=== PATIENT | female | born 1985 | race African-American/Black ===

== ENCOUNTER 2021-04-18 13:58 | Inpatient (IN) | payer BC, OTHER ==
[~2021-04-18] VITALS: Ht 172.7 cm; Wt 110.0 kg
[~2021-04-18 13:58] MED LIST: ALLEGRA60 M1 PO; AMOXICILLIN500 MG PO; BACTRIM DS1 TAB PO; CLARITIN10 MG; CLARITIN10 MG PO; CLINDAMYCIN2 % VA; DEPO-PROVER400 MG/ML; DIFLUCAN150 MG PO; FISH OIL1000 MG PO; FLAGYL500 MG PO; FLEXERIL PO; IRON325 M1 PO; LEVAQUIN500 MG PO; LORTAB 5 OR; LORTAB 7.5; NAPROSYN500 MG PO; NO HOME MEDS; NORCO1 TA2 PO; PRENATAL1 TA1 PO; PREVACID30 M1 PO; ROBITUSSIN200 MG/10 PO; TESSALON200 MG PO; TOBRAMYCIN0.3 % OD; ZOFRAN ODT4 MG PO; ZPAK PO
--- NOTE | 2021-04-18 14:25 | NUR ---
PATEINT TO ROOM VIA WHEELCHAIR AND PHYSICIAN NOTIFIED OF PATIENT STATUS
[2021-04-18 15:11] LABS: HEMATOCRIT 39.8 % (37.0-47.0); HEMOGLOBIN 12.5 g/dl (12.0-16.0); IMMATURE GRANULOCYTES 0.2 % (0.0-5.0); MEAN CELL VOLUME 86.5 fL CALC (80.0-100.0); MEAN CORPUSCULAR HGB 27.2 pG CALC (26.0-32.0); MEAN CORPUSCULAR HGB CONC 31.4 g/dL CAL (32.0-36.0); NEUT# 4.91 thou/uL (2.00-7.15); RED BLOOD COUNT 4.6 mill/uL (4.20-5.60); RED CELL DISTRI WIDTH 13.6 % (11.5-15.5)
[2021-04-18 15:21] LABS: HCG SERUM/URINE (NEG/POS) NEGATIVE (NEGATIVE)
[2021-04-18 15:30] LABS: ALBUMIN 4.1 g/dL (3.2-5.0); ALKALINE PHOSPHATASE 86 u/l (38-126); ANION GAP 16 (6-22 (CALC)); BILIRUBIN, TOTAL 0.4 mg/dL (0.0-1.4); BUN 15 mg/dL (7-17); BUN/CREATININE RATIO 21 (12-20 (CALC)); C-REACTIVE PROTEIN 8.9 mg/dL (0-0.9); CARBON DIOXIDE 27 mmol/l (22-30); CHLORIDE 97 mmol/l (95-108); CREATININE 0.7 mg/dL (0.5-1.0); GFR > 60 ML/MIN (>=60 (CALC)); GFR FOR AFR.AMER. > 60 ML/MIN (>=60 (CALC)); POTASSIUM 3.4 mmol/l (3.5-5.1); SGOT/AST 78 u/l (14-36); SODIUM 136 mmol/l (137-146); TOTAL PROTEIN 8.8 g/dL (6.3-8.2)
--- NOTE | 2021-04-18 18:48 | NUR ---
Reassessment of patient completed. No distress noted.
--- NOTE | 2021-04-18 19:00 | NUR ---
REPORT TO SEWER REPAIRER NURSE
--- NOTE | 2021-04-18 19:10 | NUR ---
IN ROOM INTRODUCED SELF TO [facility] PACED FOR TRANSFER TO [facility].
--- NOTE | 2021-04-18 19:29 | NUR ---
REPORT CALLED BY DAY SHIFT NURSE.
--- NOTE | 2021-04-18 19:34 | NUR ---
PT. TO [facility] FLOOR VIA STRETCHER, NO C/O AT THIS TIME.
[2021-04-18 19:35] VITALS: BP 115/68
--- NOTE | 2021-04-18 19:35 | NUR ---
REPORT RECEIVED FROM ER NURSE, ASSUMED CARE. PT ARRIVED TO THE UNIT AT APPROXIMATLY 1935. PT IS INDEPENDENT IN HER ADL'S. SOB WITH COVID + PNEUMONIA. LUNGS IN BASES ARE DIMINSHED ALL OTHER LOBES ARE CTA. INSTRUCTION GIVEN ON USE OF INCENTIVE SPIROHMETER AND THE IMPORTANCE OF LAYING PRONE. PT VERBALIZED UNDERSTANDING TO INSTRUCTION GIVEN. IV TO LAC #20, SL. FLUSHES EASILY. PT ON TELE RUNNING SR. BREATHING IS EVEN AND UNLABORED AT THIS TIME. PT VERBALIZED HER CONCERN THAT SHE MAY END UP ON A VENTILATOR, PT ADVISED THAT SHE HAS MULTIPLE STEPS R/T OXYGENATION BEFORE THE NEED FOR A VENTILATOR. PT SEEEMED TO BE REASSURED FOLLOWING DISCUSSION. PT ADVISED SHE ALSO HAS A 15MONTH OLD BABY AT HOME THAT IS COVID + AND SHE IS VERY WORRIED ABOUT HER. SOME ANXIETY NOTED WITH PT. PT IS INDEPENDENT IN HER ADL'S AND WAS ADVISED TO UTILIZE CALL BARNES WHENEVER SHE NEEDS ASSISTANCE. SAFETY PRECAUTIONS IN PLACE, WILL MONITOR
[2021-04-19] VITALS: BP 108/65
--- NOTE | 2021-04-19 | NUR ---
PT IS LAYING PRONE IN HER BED WITH HER EYES CLOSED. VS WNL. DENIES PAIN. NO COMPLAINTS VOICED. BREATHING IS EVEN AND UNLABORED. NO S/S OF DISTRESS NOTED. O2 REMAINS ON @ 2L VIA NC. PT TOLERATING WELL. PT HAS BEEN GETTING UP AND DOWN TO CHAIR. REMAINS VERY COMPLAINT WITH INSTRUCTION GIVEN. SAFETY PRECAUTIONS REMAIN IN PLA[place]. WILL MONITOR
[2021-04-19 04:00] VITALS: BP 108/63
--- NOTE | 2021-04-19 04:00 | NUR ---
PT RESTING IN HER ROOM WITH HER EYES CLOSED. PT CONTINUES TO LAY PRONE, VSS. BREATHING EVEN AND UNLABORED. DENIES PAIN. NO COMPLAINTS VOICED. PT GETS UP FREQUENTLY TO MOVE AROUND, VERY WORRIED THAT HER ILLNESS WILL ESCALATE. REASSURED PT AND SHE RELAXED. SAFETY PRECAUTIONS REMAIN IN PLACE. WILL MONITOR
[2021-04-19 06:01] LABS: HEMATOCRIT 39.4 % (37.0-47.0); HEMOGLOBIN 12.6 g/dl (12.0-16.0); IMMATURE GRANULOCYTES 0.4 % (0.0-5.0); MEAN CELL VOLUME 85.8 fL CALC (80.0-100.0); MEAN CORPUSCULAR HGB 27.5 pG CALC (26.0-32.0); NEUT# 4.37 thou/uL (2.00-7.15); RED BLOOD COUNT 4.59 mill/uL (4.20-5.60); RED CELL DISTRI WIDTH 13.6 % (11.5-15.5)
[2021-04-19 06:08] LABS: BUN 14 mg/dL (7-17); BUN/CREATININE RATIO 21 (12-20 (CALC)); CARBON DIOXIDE 30 mmol/l (22-30); CHLORIDE 98 mmol/l (95-108); CREATININE 0.7 mg/dL (0.5-1.0); GFR > 60 ML/MIN (>=60 (CALC)); GFR FOR AFR.AMER. > 60 ML/MIN (>=60 (CALC)); SODIUM 138 mmol/l (137-146)
[2021-04-19 06:29] LABS: ANION GAP 14 (6-22 (CALC)); C-REACTIVE PROTEIN 17.1 mg/dL (0-0.9); POTASSIUM 4.2 mmol/l (3.5-5.1)
[2021-04-19 07:30] VITALS: BP 110/63
--- NOTE | 2021-04-19 07:30 | NUR ---
PATIENT SITTING UP IN CHAIR AT THIS TIME. O2 ON AT 3L N/C AND SPO2 IS CURRENTLY 94%. PATIENT TESTER WASTE DISPOSAL LEAKAGE DONE SEE INTERVENTIONS AT THIS TIME. LUNG COOPER ARE CLEAR IN UPPER AND MIDDLE COOPER AND DIMINISHED IN LOWER COOPER. PATIENT USING INCENTIVE SPIROMETER. PATIENT DENIES ANY PAIN OR SHORTNESS OF BREATH. TELE MONITOR IN PLACE AND BEING MONITORED BY ED. CALL LIGHT WITHIN REACH.
--- NOTE | 2021-04-19 09:16 | NUR ---
PT CONSENTED TO RECEIVE PNEUMONIA VAX, HOWEVER SHE IS NOT A CANDIDATE BASED ON AGE AND PMH.
[2021-04-19 10:30] VITALS: BP 106/55
--- NOTE | 2021-04-19 11:00 | NUR ---
VIJAY SITTING AT BEDSIDE AT THIS TIME. PATIENTS REPORTED SPO2 WAS 83% PATIENT O2 MOVED FROM 3L TO 5L AND O2 MOVED TO 88-89%.NASAL CANULA REPLACED AND DR. RAMIRES NOTIFIED AND RESPIRATORY CALLED TO SET UP HI-FLOW OXYGEN AT 6L AND SPO2 CLIMBED TO 92%. PATIENT ADVISED TO SET UP IN CHAIR AT THIS TIME. YISSEL DENIES ANY SHORTNESS OF BREATH. CALL LIGHT IS WITHIN REACH. WILL CONTINUE TO MONITOR.
--- NOTE | 2021-04-19 12:00 | NUR ---
PATIENT SITTING UP IN CHAIR AT THIS TIME. PATIENT O2 IS CURRENTLY ON 8L HI-ADEBAYO AND SPO2 IS 83% O2 MOVED AT THIS TMIE TO 10L HI-ADEBAYO AND SPO2 MOVED TO 85%. PATIENT ASKED IF SHE FELS SHORT OF BREATH PATIENT STATED NO. PATIENT BREATHING IS SHALLOW AT THIS TIME. PATIENT STATED THAT SHE HAS ALLERGIES AND SOMETIMES HER NARES BECOME "STOPPED UP" PATIENT ASKED IF HER NARES ARE BLOCKED NOW PATIENT REPLIED "NO" THIS NURSE WENT TO ADVISE BRUNO CASAREZ OF SITUATION AND FLONASE ORDER PLACED. AT THIS TIME. PATIENT ADVISE TO TRY AND CONSERVE HER OXYGEN AND NOT TALK ON PHONE MUCH. PATIENT UNDERSTANDS. VIJAY ADVISE PULSE OX WILL BE MONITORED AGAIN IN A FEW MINUTES.
--- NOTE | 2021-04-19 12:10 | NUR ---
PATIENT PULSE OX RECHECKED AND PULSE OX AT THIS TIME IS 84-85% ON 10L HI-ADEBAYO. PATIENTS OXYGEN FLOW MOVED TO 12L AND SPO2 IS CURRENTLY 85%. O2 TURNED UP TO 15L HI-FLOW AND BRUNO CASAREZ MADE AWARE OF OXYGEN DEMAND AT THIS TIME. PATIENT SPO2 IS CURRENTLY 88%. WILL CONTINUE TO MONITOR.
--- NOTE | 2021-04-19 12:57 | NUR ---
PATIENT RESTING IN CHAIR DENEIS ANY SHORTNESS OF BREATH. BREATHING IS SHALLOW AND PATIENT IS CURRENTLY ON 15L HI-FLOW AND SPO2 IS 88%. PATIENT CALL LIGHT WITHIN REACH AT THIS TIME. DENIES ANY PAIN.
--- NOTE | 2021-04-19 14:20 | NUR ---
PHYSICAL THERAPY IN TO WORK WITH PATIENT AT THIS TIME.
[2021-04-19 15:00] VITALS: BP 105/63
--- NOTE | 2021-04-19 16:42 | NUR ---
PATIENT GIVEN 650MG OF TYLENOL FOR PAIN IN LEFT KNEE. PATIENT STATES THE PAIN IS A 3 OUT OF THE PAIN SCALE 0-10. PATIENT STATED A COUPLE OF WEEKS AGO SHE WENT TO THE [facility] AND COMPLAINED OF HER LEFT KNEE HURTING AND THE [facility] DID DO AN X-RAY AND FOUND IT TO BE WITHIN NORMAL LIMITS. DANIELLE STATED IS STILL OCCASIONALLY HURTS. PATIENT WILL CONTINUE TO BE MONITORED.
--- NOTE | 2021-04-19 17:31 | NUR ---
PATIENT STATED HER PAIN IN HER LEFT KNEE IS A 1 AT THIS TIME AND THAT THE TYLENOL HELPED
[2021-04-19 19:30] VITALS: BP 115/68
--- NOTE | 2021-04-19 20:00 | NUR ---
PT IN BED WITH HIGH FLOW O2 ON AT 15L. PT BREATHING IS EVEN AND UNLABORED. WHEN ASSESSING PT HER O2 SATURATION DROPPED TO 85%. ADVISED PT TO LAY PRONE AND NOTIFIED RT. ONCE PT WAS LAYING PRONE HER O2 SATURATION CAME UP TO 90%. PER RT DIRECTION CONTINUE TO MONITOR PT FOR ANY DECREASE IN OXYGEN SATURATION. APPLIED CONTINUOUS OXYGENATION MONITOR SO THAT NUMBERS CAN BE SEEN FROM THE DOOR OPPSED TO WAKING PT UP EVERY 15-20 MINUTES. PT IS TOLERATINE. NO C/O PAIN VOICED. NO S/S OF DISTRESS NOTED. WILL MONITOR
--- NOTE | 2021-04-19 21:30 | NUR ---
PT CALLED FOR ASSIATNCE TO USE THE BSC, WHILE HELPING PT TO THE TOILET O2 SATURATIONS STARTED DROPPIMG TO 65%. NOTIFED RT. RT APPLIED A 15L NON-REBREATHER MASK ALONG WITH CURRENT HIGH FLOW CANNULA AT 15L. OXYGENTION SATURATIONS RETURN TO 93%-96% WITH BOTH HIGH FLOW 15L AND NON-REBREATHER 15L. PT TOLERATING WELL. SHE IS CONTINUING TO LAY PRONE. PT HAS EXPRESSED THAT SHE IS VERY SCARED AND SHE IS ANXIOUS WITH THE THOUGHT THAT SHE MAY HAVE TO GO ON A VENTILATOR. REASSURED PT THAT AT THIS TIME SHE IS NOT GOING ONTO A VENTILATOR. SPOKE WITH PT COUSIN WHO PROVIDED CODE FOR INFORMATION. COUSIN INDICATED THAT PT HAD REQUESTED TO BE MOVED TO [facility] TOMORROW. I ADVISED THAT THE PT WOUND NEED TO DISCUSS WITH DOCTOR IN AM. ADVISED THAT THE WAY A TRANSFER IS DONE IS EITHER BY THE DOCTOR TRANSFERRRING AND THE RECIVING [facility]OSP[facility] ACCEPTING HER A PATIENT OR BY SIGNING OUT HERE AND GOING THROUGH [facility] ER. FAMILY AND PT INDICATED UNDERSTANDING TO INSTRUCTION GIVEN. WILL CONTINUE TO MONITOR
[2021-04-20] VITALS (10 sets, daily range): BP systolic 98–123; BP diastolic 58–79
--- NOTE | 2021-04-20 | NUR ---
PT RESTING PRONE AT THIS TIME. O2 SATURATIONS CONTINUE 93%-96% WITH HIGHFLOW AND NON-REBREATHER. PT TOLERATING WELL. NO COMPLAINTS VOICED AT THIS TIME. BREATHING EVEN AND UNLABORED. SAFETY PRECAUTIONS REMAIN IN PLACE. WILL MONITOR
--- NOTE | 2021-04-20 04:22 | NUR ---
PT SITTING ON SIDE OF BED, OXYGEN SATURATIONS REMAIN 94-97% WITH BOTH THE 15L OF HIGH FLOW AND 15L NON-REBREATHER. PT IS ABLE TO GO TO BSC WITH MINIMAL ASSISTANCE. PT BIGGEST PROBLEM WHEN VOIDING IS THE TUBING THAT SHE GETS TURNE AROUND. AHE IS ABLE TO BEAR WEIGHT ON HER LOWER EXTREMITIES AND TRANSFER HERSELF. PT DOES EXPRESS A LOT OF CONCERN R/T TO HER CURRENT MEDICAL CONDITION. REQUIRES QUITE A BIT OF REASSURANCE. ALL FRQUENTLY USED ITEMS ARE WITHIN REACH, BED IN LOWEST POSITION, AND CALL LIGHT WITHIN REACH. WILL MONITOR
[2021-04-20 05:36] LABS: HEMATOCRIT 36.9 % (37.0-47.0); HEMOGLOBIN 11.6 g/dl (12.0-16.0); MEAN CELL VOLUME 85.6 fL CALC (80.0-100.0); MEAN CORPUSCULAR HGB 26.9 pG CALC (26.0-32.0); MEAN CORPUSCULAR HGB CONC 31.4 g/dL CAL (32.0-36.0); NEUT# 6.79 thou/uL (2.00-7.15); RED BLOOD COUNT 4.31 mill/uL (4.20-5.60); RED CELL DISTRI WIDTH 13.6 % (11.5-15.5)
[2021-04-20 05:47] LABS: URINE BILIRUBIN - DIPSTICK NEGATIVE (NEGATIVE); URINE BLOOD DIPSTICK TRACE-INTACT (NEGATIVE); URINE COLOR YELLOW; URINE GLUCOSE - DIPSTICK NEGATIVE (NEGATIVE); URINE KETONE NEGATIVE (NEGATIVE); URINE LEUK ESTERASE NEGATIVE (NEGATIVE); URINE PH 6.5 (4.5-8.0); URINE PROTEIN - DIPSTICK 30 mg/dL (NEG-TRACE); URINE UROBILINOGEN - DIPSTICK 0.2 E.U./dL (0.2)
[2021-04-20 05:55] LABS: URINE NITRITE - DIPSTICK NEGATIVE (Negative)
[2021-04-20 06:00] LABS: ALKALINE PHOSPHATASE 64 u/l (38-126); ANION GAP 14 (6-22 (CALC)); BUN 15 mg/dL (7-17); BUN/CREATININE RATIO 24 (12-20 (CALC)); C-REACTIVE PROTEIN 7.4 mg/dL (0-0.9); CARBON DIOXIDE 30 mmol/l (22-30); CHLORIDE 99 mmol/l (95-108); CREATININE 0.6 mg/dL (0.5-1.0); GFR > 60 ML/MIN (>=60 (CALC)); GFR FOR AFR.AMER. > 60 ML/MIN (>=60 (CALC)); POTASSIUM 4.5 mmol/l (3.5-5.1); SGOT/AST 54 u/l (14-36); SODIUM 138 mmol/l (137-146)
[2021-04-20 06:03] LABS: ALBUMIN 3.2 g/dL (3.2-5.0); BILIRUBIN, TOTAL 0.2 mg/dL (0.0-1.4)
[2021-04-20 06:04] LABS: URINE MUCUS FEW hpf (NONE-FEW); URINE RBC 0-2 RBC/hpf (0-5); URINE SQUAMOUS EPITHELIAL CELL FEW EPI/hpf (0-FEW)
--- NOTE | 2021-04-20 06:47 | NUR ---
PT IS ON 15L HFNC + NRB. SATS 91%-93% AT REST.
--- NOTE | 2021-04-20 07:00 | NUR ---
PATIENT SITTING UP ON SIDE OF BED AT THIS TIME. PATIENT IS ALERT AND ORIENTED X3. PARK SUPERINTENDENT DONE SEE INTERVENTIONS. LUNG COOPER ARE DIMINISHED IN ALL COOPER AND BREATH SOUNDS ARE DIMINISHED. PATIENT DENEIS PAIN AT THIS TIME. PATIENT DOES PRESENT WITH A PRODUCTIVE COUGH AND SPUTMUM IS WHITE AND THIN TO THICK AT TIMES. PATIENT CURRENTLY ON 15L OF NON-REBREATHER AND 15L OF HIGH FLOW OXYGEN AND SPO2 CURRENTLY IS 97%. DR. FRANKEL CALLED AT THIS TIME DUE TO THE OVERNIGHT INCREASE NEED FOR OXYGEN AND HAS GIVEN ORDERS TO PLACE PATIENT ON VAPO-THERM AT THIS TIME. WEB DESIGN SPECIALIST CALLED AND NOTIFIED OF PLACEMENT NEED. PATIENT IS ON TELE AND BEING MONITORED BY ED.
--- NOTE | 2021-04-20 09:02 | NUR ---
PT ARRIVES TO ROOM #9 FROM [facility] D/T [facility] NEED. PT PLACED ON VAPOTHERM BY RT @ 30L. PT TOLERATING WELL. O2 SAT 96-98%. PLACED ON LENS GENERATOR. PLAN OF CARE DISCUSSED WITH PT. VERBALIZED UNDERSTANDING. DENIES ANY NEEDS.
--- NOTE | 2021-04-20 10:59 | NUR ---
DR FRANKEL AND DARLENE WAGE AND SALARY SPECIALIST BEDSIDE FOR EVAL.PER DR FRANKEL ADVISED TO HAVE OXYGEN THERAPY WEANED
--- NOTE | 2021-04-20 15:00 | NUR ---
RT BEDSIDE TO DECREASE OXYGEN, PT UNABLE TO TOLERATED DECREASE. PT PLACED BACK ON 30L AND 75%O2
--- NOTE | 2021-04-20 18:00 | NUR ---
MEAL TRAY PROVIDED TO PT. VAPOTHERM CONTINUES IN PLACE. O2 SAT 94-96%. PT WITH INT PROD COUGH. TELEPHONIC CASE MANAGER IN PLACE.
--- NOTE | 2021-04-20 19:30 | NUR ---
BREATHING EASILY. NAD.
--- NOTE | 2021-04-20 20:52 | NUR ---
RESTING QUIETLY. MILD ANXIETY. BREATHING APPEARS UNLABORED.
--- NOTE | 2021-04-20 22:00 | NUR ---
RESTING QUIETLY. VSS. APPEARS COMFORTABLE.
--- NOTE | 2021-04-20 23:10 | NUR ---
TRANSFER TO ICU WITH SPACE CONTROLLER
--- NOTE | 2021-04-20 23:13 | NUR ---
RECEIVED PT FROM ER. ACCOMPANIE BY RT AND NURSE
[2021-04-21] VITALS (18 sets, daily range): BP systolic 111–127; BP diastolic 64–78
--- NOTE | 2021-04-21 | NUR ---
PT PREFERS TO WEAR IGHT GOWN FROM HOME. ALBUTEROL HFA AND INCENTIVE SPIROMETER USE TAUGHT. INSPIRED VOLUME 500. PT ASSISTED TO PRONE POSITION. EMOTIONAL SUPPORT PROVIDED. TOLERATING PRONE POSITION WELL. NO DISTRESS. WILL CONTINUE TO MONITOR CLOSELY
--- NOTE | 2021-04-21 03:59 | NUR ---
PT RESTING COMFORTABLY IN PRONE POAITION. HEATED HIGH FLOW NASAL CANNULA IN USE. O2 SAT 93 -98%. WILL CONTINUE TO MONITOR.
--- NOTE | 2021-04-21 05:35 | NUR ---
PT WITH COUGHING EPISODE. PRODUCTIVE THICK PINCK TINGED MUCOUS. O2 SAT DECREASED TO 72 DURING EPISODE. PT RESMED PRONE POSITION. PT HAD REPOSITIONED BRIEFLY FOR CXR. O2 SAT INCREASED TO 92%. WILL CONTINUE TO MONITOR.
[2021-04-21 06:11] LABS: HEMATOCRIT 35.4 % (37.0-47.0); HEMOGLOBIN 11.2 g/dl (12.0-16.0); IMMATURE GRANULOCYTES 1.4 % (0.0-5.0); MEAN CELL VOLUME 86.8 fL CALC (80.0-100.0); MEAN CORPUSCULAR HGB 27.5 pG CALC (26.0-32.0); MEAN CORPUSCULAR HGB CONC 31.6 g/dL CAL (32.0-36.0); NEUT# 4.52 thou/uL (2.00-7.15); RED BLOOD COUNT 4.08 mill/uL (4.20-5.60); RED CELL DISTRI WIDTH 13.6 % (11.5-15.5)
[2021-04-21 06:31] LABS: ANION GAP 11 (6-22 (CALC)); BUN 12 mg/dL (7-17); BUN/CREATININE RATIO 19 (12-20 (CALC)); C-REACTIVE PROTEIN 4.7 mg/dL (0-0.9); CARBON DIOXIDE 31 mmol/l (22-30); CHLORIDE 101 mmol/l (95-108); CREATININE 0.6 mg/dL (0.5-1.0); GFR > 60 ML/MIN (>=60 (CALC)); GFR FOR AFR.AMER. > 60 ML/MIN (>=60 (CALC)); SODIUM 139 mmol/l (137-146)
--- NOTE | 2021-04-21 07:07 | NUR ---
REPORT GIVEN TO GORDO JOYCE
--- NOTE | 2021-04-21 07:57 | NUR ---
PATIENT LAYING IN PRONE AT THIS TIME. PATIENT ON VAPO-THERM SETTINGS CURRENTLY IS 30L/75% AND SPO2 90%. PATIENT LUNG COOPER ARE DIMINISHED IN ALL COOPER AND BREATH SOUNDS ARE DIMINISHED AND SHALLOW. PATIENT DENIES ANY SHORTNESS OF BREATH AT THIS TIME AND OR PAIN. VIDEO COORDINATOR READING 71 SR AT THIS TIME. SIDERAILS ARE UP CALL LIGHT WITHIN REACH. ARCADE ATTENDANT DONE SEE INTERVENTIONS.
--- NOTE | 2021-04-21 10:00 | NUR ---
PATIENT LAYING IN PRONE POSITION AT THIS TIME. VAPO-THERM ON AND SPO2 IS 91%. PATIENT DENIES ANY PAIN OR SHORTNESS OF BREATH AT THIS TIME. CALL LIGHT WIHTIN REACH. SIDERAILS ARE UP X2
--- NOTE | 2021-04-21 11:55 | NUR ---
PATIENT SITTING UP IN BED EATING LUNCH DENEIS ANY NEEDS. VAPO-THERM REMAINS AT 30L/75%. PATIENT DEINES ANY SHORTNESS OF BREATH AND OR PAIN AT THIS TIME. SIDERAILS ARE UP X 2 CALL LIGHT IS WITHIN REACH.
--- NOTE | 2021-04-21 16:10 | NUR ---
PATIENT REMAINS UP IN CHAIR AT THIS TIME. PATIENT REQUESTING A GINERGALE AT THIS TIME PATIENT STATED WHEN SHE GET ALL THE ANTIBIOTIC IN THE AFTERNOON HER STOMACH GETS "A LITTLE UPSET AND GINERALE HELPS". PATIENT REMAINS ON VAPO-THERM AT THIS TIME AND SETTINGS ARE UNCHAGED FROM PREVIOUS DOCUMENTTATION. GANG LEADER READING SB AT 58 AT THIS TIME. PATIENT BREATH SOUNDS ARE CLEAR AND RESPIRATIONS ARE UNLABORED AT THIS TIME. CALL LIGHT IS WIHTIN REACH.
--- NOTE | 2021-04-21 18:15 | NUR ---
PATIENT REMAINS UP IN CHAIR AT THIS TIME DENEIS ANY NEEDS AND OR PAIN AT THIS TIME. PATIENT REMAIN ON VAPO-THERM AT 30L/75% AT THIS TIME SPO2 CURRENTLY IS 96% AND BP IS 112/66. CALL LIGHT IS WITHIN REACH AT THIS TIME.
--- NOTE | 2021-04-21 19:45 | NUR ---
RT AT BEDSIDE ASSESSING PATIENT PATIENT REMAINS ON VAPOTHERM PLACED ON 30LPM FIO2 60%.
--- NOTE | 2021-04-21 20:00 | NUR ---
PATIENT ALERT ORIENTEDX 3, CURRENTLY SITTING IN CHAIR, HOOKED TO VAPOTHERM 30LPM/ 60% FI02, SPO2 96%, PATIENT C/O GERD STATED FROM EATING DINNER PULLED PORK, REST ROOM MAID AWARE AWAITING ORDERS, PATIENT HAS SALINE LOCK ON LAC G 20, PATENT FLUSHES WELL, LUNG SOUNDS DIMINISHED BOTH LUNG COOPER, PATIENT HAVING DRY COUGH OCCASIONAL MUCUS SMALL YELLOWISH, ACTIVEBOWEL SOUNDS, CALL LIGHT AT REACH.
--- NOTE | 2021-04-21 20:01 | NUR ---
WEB SYSTEMS DEVELOPER MADE AWARE PATIENT C/O INDIGESTION GERD PATIENT STATED FROM "PULLED PORK DINNER" AWAITING ORDER.
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
--- NOTE | 2021-04-21 23:00 | NUR ---
PATIENT ASSISTED TO BEDSIDE COMMODE, VOIDED AND PASS GAS, PATIENT HAD EPISODE OF COUGHING SPELL, SPO2 RANGING TO LOW 80'S, PATIENT COACHED TO DEEP BREATH, PUT NEW PULSE OXIMETER AND PATIENT ASSITED TO PRONE.WILL CONTINUE TO MONITOR.
--- NOTE | 2021-04-21 23:27 | NUR ---
SPO2 AT THIS TIME 94% ON VAPO 30LPM FIO2 60%.
[2021-04-22] VITALS (18 sets, daily range): BP systolic 91–146; BP diastolic 53–95
--- NOTE | 2021-04-22 | NUR ---
PATIENT REMAINS ON PRONE POSITION, NOT IN DISTRESS AT THIS TIME, CALL LIGHT AT REACH.
--- NOTE | 2021-04-22 01:20 | NUR ---
REIMBURSEMENT SPEC ASSISTED PATIENT TO BEDSIDE COMMODE TO VOID, PATIENT STARTED COUGHING SPO2 WENT DOWN TO 50'S C/O SHORTNESS OF BREATH, VAPOTHERM TURNED UP TO 40LPM 100% FIO2 R/T RESPIRATORY DISTRESS.
--- NOTE | 2021-04-22 02:05 | NUR ---
INDWELLING ROMERO CATHETER INSERTED FR16 R/T RESPIRATORY DISTRESS FROM GOING TO COMMODE, PATIENT TOLERATED PROCEDURE, RESPIRATION STABLE AT THIS TIME, VAPO TURNED BACK DOWN TO 30LPM FI02 60% SPO2 AT 94%.NICKING MACHINE OPERATOR HERMELINDO DAWN MADE AWARE.
--- NOTE | 2021-04-22 02:38 | NUR ---
PATIENT ALREADY ON PRONE POSITION, CURRENT VAPO SETTINGS 30LPM FIO2 60% SPO2 RANGE 87-88% RESPIRATORY MADE AWRE.
--- NOTE | 2021-04-22 03:03 | NUR ---
SPO2 BACK AT 93% ON VAPO 30LPM/ FIO2 60%.
--- NOTE | 2021-04-22 04:00 | NUR ---
PATIENT RESTING IN BED PRONE POSITION, SPO2 @ 96% CURRENTLY SLEEPING IN BED, CALL LIGHT AT REACH.
[2021-04-22 05:39] LABS: HEMOGLOBIN 11.8 g/dl (12.0-16.0); IMMATURE GRANULOCYTES 1.6 % (0.0-5.0); MEAN CORPUSCULAR HGB 27.4 pG CALC (26.0-32.0); MEAN CORPUSCULAR HGB CONC 31.9 g/dL CAL (32.0-36.0); NEUT# 4.64 thou/uL (2.00-7.15); RED BLOOD COUNT 4.3 mill/uL (4.20-5.60); RED CELL DISTRI WIDTH 13.4 % (11.5-15.5)
[2021-04-22 05:53] LABS: ANION GAP 11 (6-22 (CALC)); BUN 11 mg/dL (7-17); BUN/CREATININE RATIO 17 (12-20 (CALC)); CARBON DIOXIDE 29 mmol/l (22-30); CHLORIDE 104 mmol/l (95-108); CREATININE 0.7 mg/dL (0.5-1.0); GFR > 60 ML/MIN (>=60 (CALC)); GFR FOR AFR.AMER. > 60 ML/MIN (>=60 (CALC)); POTASSIUM 4.6 mmol/l (3.5-5.1); SODIUM 139 mmol/l (137-146)
--- NOTE | 2021-04-22 06:45 | NUR ---
REPORT RECEIVED FROM NIGHT RN. CARE ASSUMED.
--- NOTE | 2021-04-22 07:15 | NUR ---
PATIENT RESTING IN BED IN PRONE POSITION WITH EYES CLOSED. PATIENT AROUSES TO VERBAL STIMULI. SHIFT ASSESSMENT COMPLETED AT THIS TIME. IV PATENT X1. PATIENT STATES THAT SHE IS SCARED AND NERVOUS. DISCUSSED THAT WE TALK WITH THE DOCTOR ABOUT THIS ON ROUNDS. PATIENT SAT UP IN BED. PATIENT DESATS TO 88% BUT DOES RECOVER. REASSURANCE PROVIDED. CALL LIGHT IN REACH. WILL CONTINUE TO MONTIOR.
--- NOTE | 2021-04-22 07:59 | NUR ---
PATIENT WITH COMPLAINTS OF NAUSEA AT THIS TIME. PATIENT MEDICATED WITH PEPCID, PROTONIX, AND XANAX PER MAR
--- NOTE | 2021-04-22 09:00 | NUR ---
DR QUIROZ AT BEDSIDE AT THIS TIME. PLAN OF CARE DISCUSSED.
--- NOTE | 2021-04-22 10:04 | NUR ---
PIPE BENDER ASSISTED PATIENT WITH AM CARE AND ASSISTED PATIENT UP TO RECLINER AT BEDSIDE. PATIENT TOLERATED WELL.
--- NOTE | 2021-04-22 11:30 | NUR ---
PATIENT SET UP FOR NOON MEAL AT THIS TIME.
--- NOTE | 2021-04-22 12:00 | NUR ---
PATIENT RESTING IN BED IN PRONE POSTITION AT THIS TIME. RESP ARE EVEN AND UNLABORED. NO DISTRESS NOTED. CALL LIGHT IN REACH. WILL CONTINUE TO MONITOR.
--- NOTE | 2021-04-22 14:00 | NUR ---
PATIENT RESTING IN BED PRONED AT THIS TIME. RESP ARE EVEN AND UNLABORED. NO DISTRESS NOTED.
--- NOTE | 2021-04-22 15:52 | NUR ---
PATIENT RESTING IN BED AT THIS TIME WATCHNG TV. RESP ARE EVEN AND UNLABORED. NO DISTRESS NOTED. CALL LIGHT IN REACH. WILL CONTINUE TO MONITOR.
--- NOTE | 2021-04-22 17:59 | NUR ---
PATIENT SITTING UP IN RECLINER AT BEDSIDE EATING EVENING MEAL. RESP ARE EVEN AND UNLABORED. NO DISTRESS NOTED. CALL LIGHT IN REACH. WILL CONTINUE TO MONITOR.
--- NOTE | 2021-04-22 19:00 | NUR ---
RECEIVED REPORT FROM MALINA CARO.
--- NOTE | 2021-04-22 20:00 | NUR ---
PATIENT AWAKE ALERT SITTING UP IN CHAIR. O2 30L AT 60% VIA HIGHFLOW N/C. RESPIRATIONS EVEN AN UNLABORED. HR REGULAR. VAD S/L. ROMERO CATHETER DRAINING URINE TO GRAVITY. DENIES PAIN. NO ACUTE DISTRESS OBSERVED. ASSESSMENT COMPLETED AND CHARTED. FALL PRECAUTIONS IN PLACE.
--- NOTE | 2021-04-22 21:30 | NUR ---
HS MEDS GIVEN. XANAX PRN GIVEN PER REQUEST. BED IN BED SEMI-FOWLERS AT THIS TIME. NO ACUTE DISTRESS.
--- NOTE | 2021-04-22 23:34 | NUR ---
VENTOLIN ADMINISTERED. PATIENT AWAKE CALM NO DISTRESS.
--- NOTE | 2021-04-22 23:40 | NUR ---
ROMERO CATHETER REPOSITIONED FOR COMFORT. PATIENT LYING SUPINE AT THIS TIME. NO ACUTE DISTRESS.
[2021-04-23] VITALS (21 sets, daily range): BP systolic 116–139; BP diastolic 59–87
--- NOTE | 2021-04-23 00:35 | NUR ---
PATIENT RESTNG SUPINE. NO ACUTE DISTRESS NOTED.
--- NOTE | 2021-04-23 02:09 | NUR ---
PATIENT STILL RESTING PRONE POSITION. NO ACUTE DISTRESS. OXYGEN SATURATIN REMAINS IN THE 90S.
--- NOTE | 2021-04-23 04:42 | NUR ---
PATIENT 02 SATS INTO 60%, COUGHING SPELL AFTER DRINKING WATER. CALL TO RT, PATIENT NOW ON 40L OF 100% VAPOTHERM PATIENT SLOWLY RECOVERS, O2 SAT NOW AT 93%
--- NOTE | 2021-04-23 06:18 | NUR ---
PATIENT REQUESTING FOR OXYGEN TO BE TITRATED DOWN. RT CONSULTED AND STATES SHE CANNOT GO DOWN AT THIS TIME RELATED TO PREVIOUS DESATING DURING COUGHING SPELL.
[2021-04-23 06:21] LABS: HEMATOCRIT 38.3 % (37.0-47.0); HEMOGLOBIN 12.2 g/dl (12.0-16.0); MEAN CELL VOLUME 85.5 fL CALC (80.0-100.0); MEAN CORPUSCULAR HGB 27.2 pG CALC (26.0-32.0); MEAN CORPUSCULAR HGB CONC 31.9 g/dL CAL (32.0-36.0); RED BLOOD COUNT 4.48 mill/uL (4.20-5.60); RED CELL DISTRI WIDTH 13.3 % (11.5-15.5)
[2021-04-23 06:31] LABS: ANION GAP 12 (6-22 (CALC)); BUN 11 mg/dL (7-17); BUN/CREATININE RATIO 16 (12-20 (CALC)); CALCULATED LDLCHOLESTEROL 52 mg/dL (62-129 (CALC)); CARBON DIOXIDE 27 mmol/l (22-30); CHLORIDE 103 mmol/l (95-108); CHOLESTEROL HDL RATIO 4.7 (<4.4 (CALC)); CREATININE 0.7 mg/dL (0.5-1.0); GFR > 60 ML/MIN (>=60 (CALC)); GFR FOR AFR.AMER. > 60 ML/MIN (>=60 (CALC)); HDL CHOLESTEROL 23 mg/dL (>=40); MAGNESIUM 1.8 mg/dL (1.6-2.3); POTASSIUM 4.3 mmol/l (3.5-5.1); SODIUM 137 mmol/l (137-146); TOTAL CHOLESTEROL 109 mg/dl (0-199); TOTAL TRIGLYCERIDES 169 mg/dl (30-149); VLDL CHOLESTROL 34 mg/dl (1-41 (CALC))
--- NOTE | 2021-04-23 07:45 | NUR ---
PATIENT IN BED AT THIS TIME. DEEP WELL CONTRACTOR DONE SEE INTERVENTIONS. PATIENT ON VAPO THERM AT THIS TIME SETTINGS ARE 40L/100% HUMIDITY. PATIENT LUNG COOPER ARE DIMINISHED THROUGOUT BREATH SOUND ARE SHAWLLOW AND DIMINISHED. PATIENT HAS A ROMERO CATH AND IS DRAING CLEAR YELLOW URINE AT THIS TIME. PATIENT IS ALERT AND ORIENTED X 3. LOLLYPOP MACHINE OPERATOR READING SINUS RYTHMA AT 89% SIDERAILS ARE UP X 2 CALL LIGHT IS WITHIN REACH.
--- NOTE | 2021-04-23 08:45 | NUR ---
PER DR. WELSH'S ORDERS PATIENTS ROMERO REMOVED AT THIS TIME. 600 ML NOTED IN ROMERO BAG. PATIENT TOLERATED REMOVAL WITHOUT INCIDENT AND PERICARE GIVEN AT THIS TIME. PATIENT WILL CONTINUE TO BE MONITORED.
[2021-04-23 09:01] LABS: SGOT/AST 27 u/l (14-36)
--- NOTE | 2021-04-23 10:00 | NUR ---
PATIENT UP TO CHAIR AT THIS TIME PATIENT DENIES ANY PAIN CURRENTLY. CALL LIGHT IS WITHIN REACH CRYSTALLIZER OPERATOR READING: SR/84 AND SPO2 ON VAPO-THERM IS 96%. CALL LIGHT IS WITHIN REACH. PATINET ENCOURAGED TO INCREASE FLUIDS AND TO NOTIFY NURSE WHEN SHE NEEDS TO URINATE.
--- NOTE | 2021-04-23 11:45 | NUR ---
PATIENT ASSISTED BY HIRAL SANTANA) TO BEDSIDE COMMODE AT THIS TIME. THIS IS THE FIRST VOID AFTER ROMERO CATH WAS REMOVED. PATIENT VOIDED 400ML OF CLEAR YELLOW URINE AT THIS TIME.
--- NOTE | 2021-04-23 12:45 | NUR ---
PATIENT IV SITE CHANGED AT THIS TIME. PATIENT NEW START IV SITE IS A #20 IN THE RAC. IV SITE REMOVED FROM LAC AT THIS TIME. PATIENT TOLERATED PROCEDURE WELL.
--- NOTE | 2021-04-23 13:05 | NUR ---
PATIENT PLACED BACK IN BED AT THIS TIME. PATIENT LAYING ON RIGHT SIDE AT THIS TIME. PATIENT STATES "MY BELLY IS ACHING A LITTLE" ASKED IF SHE NEEDED ANYTHING FOR PAIN PATIENT DENIES". PATIENT SIDERAILS ARE UP X 2 AND PATIENT REMAINS ON VAPO-THERM AT THIS TIME.
--- NOTE | 2021-04-23 14:00 | NUR ---
PATIENT IN BED AT THIS TIME VAPO-THERM ON AT 40L/100% SPO2 CURRENTLY IS 97%. SIDERAILS ARE UP CALL LIGHT WITHIN REACH.
--- NOTE | 2021-04-23 16:00 | NUR ---
PATIENT LAYING IN BED AT THIS TIME. PATIENT TECHNICAL SYSTEM ANALYST READING SR/HR OF 76 AND SPO2 IS 99% ON 40L/100% VAPO=THERM AT THIS TIME. PATIENT BREATH SOUNDS REMAIN DIMININSHED AND SHALLOW AND PATIENT DENIES ANY PAIN. PATIENT IS VERY CONCERNED ABOUT WHAT DR. WELSH SAID TO HER EARLIER. PATIENT STATED "THE TOLD ME THAT 60% OF MY LUNGS ARE DAMAGED". PATIENT EDUCATED ON PNEUMONIA AND STAGES OF HEALING AND GETTING BETTER. PATIENT ADVISED TO CONTINUE DOING EVERYTHING THAT HAS BEEN ADVISED TO DO AND WE WILL CONTINUE TO MONITOR. SIDERAILS ARE UP AND CALL LIGHT IS WITHIN REACH AT THIS TIME.
--- NOTE | 2021-04-23 18:16 | NUR ---
PATIENT RESTING IN BED AT THIS TIME. VAPO-THER REMAINS ON AND SPO2 IS CURRENTLY 95%. SIDERAILS ARE UP CALL LIGHT IS WITHIN REACH.
--- NOTE | 2021-04-23 19:16 | NUR ---
SBAR RECEIVED FROM GORDO JOYCE. PATIENT SITTING UP IN BED WATCHING TV, TOLERATING WELL. CALL LIGHT WITHIN REACH.
[2021-04-24] VITALS (18 sets, daily range): BP systolic 112–138; BP diastolic 58–114
--- NOTE | 2021-04-24 00:32 | NUR ---
RESTING QUIETLY EYES CLOSED. BED IN LOW POSITION. NO DISTRESS NOTED. CALL LIGHT WITHIN REACH.
--- NOTE | 2021-04-24 04:54 | NUR ---
RESTING QUIETLY EYES CLOSED. NO DISTRESS NOTED. BED IN LOW POSITION, CALL LIGHT WITHIN REACH.
[2021-04-24 05:19] LABS: HEMOGLOBIN 11.7 g/dl (12.0-16.0); MEAN CELL VOLUME 84.1 fL CALC (80.0-100.0); MEAN CORPUSCULAR HGB 27.3 pG CALC (26.0-32.0); MEAN CORPUSCULAR HGB CONC 32.5 g/dL CAL (32.0-36.0); RED BLOOD COUNT 4.28 mill/uL (4.20-5.60); RED CELL DISTRI WIDTH 13.3 % (11.5-15.5)
[2021-04-24 05:34] LABS: ANION GAP 11 (6-22 (CALC)); BUN 10 mg/dL (7-17); BUN/CREATININE RATIO 19 (12-20 (CALC)); CARBON DIOXIDE 26 mmol/l (22-30); CHLORIDE 102 mmol/l (95-108); CREATININE 0.5 mg/dL (0.5-1.0); GFR > 60 ML/MIN (>=60 (CALC)); GFR FOR AFR.AMER. > 60 ML/MIN (>=60 (CALC)); POTASSIUM 4.3 mmol/l (3.5-5.1); SODIUM 135 mmol/l (137-146)
--- NOTE | 2021-04-24 08:05 | NUR ---
PATIENT LAYING IN BED AT THIS TIME. STRIPPING SHOVEL OPERATOR DONE SEE INTERVENTIONS. PATIENT REMAINS ON VAPO-THERM AND SPO2 CURRENTLY IS 92% AT THIS TIME. PATIENT ASSISTED TO BEDSIDE COMMODE AND BACK AND SPO2 DROPPED TO 82% AND PATIENT DID RECOVER BACK TO 92%. PATIENT IS ALERT AND ORIENTED X 3. LUNG COOPER REMAIN DIMINISHED AND BREATH SOUNDS ARE DIMINISHED AND SHALLOW AT THIS TIME. SIDERAILS ARE UP AND CALL LIGHT IS WITHIN REACH. WILL CONTINUE TO MONITOR.
--- NOTE | 2021-04-24 10:05 | NUR ---
PATIENT SITTING UP IN CHAIR AT THIS TIME AND HIRAL SANTACRUZ ASSISTING PATIENT WITH BEDSIDE BATH AT THIS TIME. PATIENT REMAINS ON VAPO-THERM AT 40L/100% AND SPO2 CURRENTLY IS 87%. PATIENT IS SHORT OF BREATH AT THIS TIME DUE TO THE PHYSICAL EXCERTION. CALL LIGHT IS WIHTIN REACH AND PATIENT WILL CONTINUE TO BE MONITORED.
--- NOTE | 2021-04-24 12:05 | NUR ---
PATIENT UP IN CHAIR AT THIS TIME. PATIENT DENEIS ANY PAIN OR NEEDS. PATIENT DOES PRESENT WITH DRY NON-PRODUCTIVE COUGH AT THIS TIME. PATIENT SITTING UP IN CHAIR AT THIS TIME VAPO-THERM ON AND SETTINGS ARE 40L/100% PATIENTS SPO2 IS 96% WILL CONTINUE TO MONITOR. CALL LIGHT AND PERSONAL ITEMS WITHIN REACH.
--- NOTE | 2021-04-24 14:00 | NUR ---
PATIENT REMAINS UP IN CHAIR AT THIS TIME. PATIENT ON VAPO-THERM AND SETTINGS ARE UNCHANGED AT THIS TIME. SPO2 IS CURRENTLY 99%. PATIENT DENIES ANY PAIN AT THIS TIME. PATIENTS CALL LIGHT IS WITHIN REACH WELL PERSONAL BELONGINGS AT THIS TIME. PATIENT WILL CONTINUE TO BE MONITORED.
--- NOTE | 2021-04-24 16:05 | NUR ---
PATINET LAYING IN BED AT THIS TIME. PATIENT DENIES ANY NEEDS AND OR PAIN AT THIS TIME. PATIENT REMAINS ON VAPO-THERM AND SETTINGS ARE 40L/100 % PATIENT CALL LIGHT AND PERSONAL BELONGING AT WITHIN REACH AT THIS TIME. COSMETIC DENTIST READHING: SR/HR OF 65 AND SPO2 IS 99%. PATIENT WILL CONTINUE TO BE MONITORED.
--- NOTE | 2021-04-24 18:07 | NUR ---
PATIENT SITTING UP ON SIDE OF THE BED AT THIS TIME. CARDIAC HEART MONITOR READING ST AND HR IS 102. PATIENT REMAINS ON VAPO-THERM AND SPO2 AT THIS TIME IS 92%. SIDERAILS ARE UP CALL LIGHT IS WITHIN REACH.
--- NOTE | 2021-04-24 19:20 | NUR ---
SHELLEY RECEIVED FROM GORDO JOYCE.
--- NOTE | 2021-04-24 19:39 | NUR ---
PATIENT RESTING COMFORTABLY IN BED, LEFT SIDELYING POSITION. DENIES PAIN AT THIS TIME. NO DISTRESS NOTED. BED IN LOW POSITION, LOCKED. CALL LIGHT WITHIN REACH.
[2021-04-25] VITALS (18 sets, daily range): BP systolic 108–139; BP diastolic 60–84
--- NOTE | 2021-04-25 00:39 | NUR ---
RESTING QUIETLY, HOB SLIGHTLY ELEVATED. NO DISTRESS NOTED AT THIS TIME. CALL LIGHT WITHIN REACH.
--- NOTE | 2021-04-25 04:13 | NUR ---
PATIENT OOB TO BEDSIDE COMMODE, TRANSFERED WELL. SATURATION DECREASED TO HIGH 70s LOW 80s, TOOK A FEW MINUTES TO RECOVER TO 90%. PATIENT HAD COUGHING SPELL, ROBITUSSIN ADMINISTERED. FLUIDS OFFERED. PATIENT NOW RESTING IN BED. NO DISTRESS NOTED, CALL LIGHT WITHIN REACH.
[2021-04-25 04:36] LABS: HEMATOCRIT 38.6 % (37.0-47.0); HEMOGLOBIN 12.4 g/dl (12.0-16.0); IMMATURE GRANULOCYTES 1.7 % (0.0-5.0); MEAN CELL VOLUME 84.8 fL CALC (80.0-100.0); MEAN CORPUSCULAR HGB 27.3 pG CALC (26.0-32.0); MEAN CORPUSCULAR HGB CONC 32.1 g/dL CAL (32.0-36.0); NEUT# 6.56 thou/uL (2.00-7.15); RED BLOOD COUNT 4.55 mill/uL (4.20-5.60); RED CELL DISTRI WIDTH 13.3 % (11.5-15.5)
[2021-04-25 05:02] LABS: ALKALINE PHOSPHATASE 65 u/l (38-126); ANION GAP 12 (6-22 (CALC)); BUN 10 mg/dL (7-17); BUN/CREATININE RATIO 18 (12-20 (CALC)); CARBON DIOXIDE 24 mmol/l (22-30); CHLORIDE 104 mmol/l (95-108); CREATININE 0.6 mg/dL (0.5-1.0); GFR > 60 ML/MIN (>=60 (CALC)); GFR FOR AFR.AMER. > 60 ML/MIN (>=60 (CALC)); POTASSIUM 4.5 mmol/l (3.5-5.1); SGOT/AST 19 u/l (14-36); SODIUM 136 mmol/l (137-146); TOTAL PROTEIN 6.7 g/dL (6.3-8.2)
[2021-04-25 05:08] LABS: BILIRUBIN, TOTAL 0.4 mg/dL (0.0-1.4)
--- NOTE | 2021-04-25 08:00 | NUR ---
PATIENT IS A/O X3, ABLE TO MAKE NEEDS KNOWN TO STAFF. STATED THAT SHE WAS HAVING SOME SLIGHT DISCOMFORT IN HER CHEST 3/10 STATES ITS LIKE SORENESS FROM COUGHING ALL NIGHT. STATES SHE FEELS WEAKER TODAY, STARTED TO HAVE CRAMPING DUE TO HER STARTING HER PERIOD THIS MORNING. WILL ASK DOCTOR ABOUT ANXITEY AND PAIN MEDICATIONS FOR HER WHEN HE COMES TO MAKE ROUNDS. CLEAR TO DIMINISHED LUNG SOUNDS IN BOTTOM BASES. TENDS TO HOLD HER BREATHE AT TIMES, POSSIBLE UNDERLYING ANXITEY ISSUE. NO S/S OF SOB OR DISTRESS AT THIS TIME. COTNINUES TO 40L 100% VAPO, WILL SPEAK TO RT ABOUT TITRATING DOWN. 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 NO ARM OR LEG DRIFT. ACTIVE BOWEL SOUNDS. SOFT NON TENDER ABDOMEN. STRONG PUSLES. NO EDEMA PRESEMT AT THIS TIME. SAFETY MEASURES IN PLACE. CALL LIGHT IN RREACH. WILL CONTINUE TO MONITOR PER [facility]'S POICLY.
--- NOTE | 2021-04-25 10:00 | NUR ---
PATIENT IS SITTING UP IN THE CHAIR WATCHING TV.
--- NOTE | 2021-04-25 11:13 | NUR ---
weaned [facility] paramters as per pt spo2. antonio well at this time. trace evidence technician to monitor.
--- NOTE | 2021-04-25 12:00 | NUR ---
PATIENT IS SITTING UP IN CHAIR EATING HER LUNCH.
--- NOTE | 2021-04-25 14:03 | NUR ---
PATIENT IS ON BEDSIDE COMMODE.
--- NOTE | 2021-04-25 16:00 | NUR ---
PATIENT IS ON BEDSIDE COMMODE.
--- NOTE | 2021-04-25 18:00 | NUR ---
PATIENT IS SITTING UP EATING HER GRILLED CHEESE SANDWITCH.
--- NOTE | 2021-04-25 19:15 | NUR ---
REPORT GIVEN BY LYUBOV. PATIENT RESTING IN BED WATCHING TV. RESP LABORED AND SHALLOW, 30L 70% FIO2 ON VAPOTHERM. FALL AND SAFTEY PRECAUTIONS IN PLACE. ALERT AND ORIENT, SLOW TO RESPOND. IV SALINE LOCKED. 1 PERSON ASSIST. PLAN OF CARE DISCUSSED. PATIENT INFORMED TO CALL WITH ANY QUESTIONS OR CONCERNS.
[2021-04-26] VITALS (14 sets, daily range): BP systolic 111–136; BP diastolic 61–85
--- NOTE | 2021-04-26 | NUR ---
PATIENT RESTING IN BED WITH VAPOTHERM IN PLACE. RESP EVEN AND UNLABORED. NO S/S OF DISTRESS NOTED. FALL NAD SAFTEY PRECAUTIONS IN PLACE.
--- NOTE | 2021-04-26 02:17 | NUR ---
PATIENT RESTING WITH EYES CLOSED. RESP EVEN AND UNLABORED. NO S/S OF DISTRESS NOTED
--- NOTE | 2021-04-26 05:15 | NUR ---
LAB AT BEDSIDE
[2021-04-26 06:12] LABS: HEMATOCRIT 35.7 % (37.0-47.0); HEMOGLOBIN 11.6 g/dl (12.0-16.0); MEAN CELL VOLUME 84.4 fL CALC (80.0-100.0); MEAN CORPUSCULAR HGB 27.4 pG CALC (26.0-32.0); MEAN CORPUSCULAR HGB CONC 32.5 g/dL CAL (32.0-36.0); RED BLOOD COUNT 4.23 mill/uL (4.20-5.60); RED CELL DISTRI WIDTH 13.3 % (11.5-15.5)
[2021-04-26 06:18] LABS: ANION GAP 11 (6-22 (CALC)); BUN 11 mg/dL (7-17); BUN/CREATININE RATIO 18 (12-20 (CALC)); CARBON DIOXIDE 25 mmol/l (22-30); CHLORIDE 104 mmol/l (95-108); CREATININE 0.7 mg/dL (0.5-1.0); GFR > 60 ML/MIN (>=60 (CALC)); GFR FOR AFR.AMER. > 60 ML/MIN (>=60 (CALC)); POTASSIUM 4.3 mmol/l (3.5-5.1); SODIUM 135 mmol/l (137-146)
--- NOTE | 2021-04-26 06:18 | NUR ---
PATIENT UP TO BSC, DESAT SLOW TO RECOVER. FALL AND SAFTEY PRECAUTIONS IN PLACE.
--- NOTE | 2021-04-26 06:19 | NUR ---
PATIENT REFUSING TO KEEP BLOOD PRESSURE CUFF IN PLACE. PLACED ON PATIENT THROUGHOUT THE NIGHT. PATIENT CONTIUNES TO REMOVE BLOOD PRESSURE CUFF.
--- NOTE | 2021-04-26 08:00 | NUR ---
PATIENT IS A/O X3, ABLE TO MAKE NEEDS KNOWN TO STAFF. USED THE BEDSIDE COMMODE THIS MORNING, HAD 500 URINE OUTPUT AND ONE SMALL BROWN FORMED BOWEL MOVEMENT. DENIES PAIN AT THIS TIME. DENIES SOB. STATED SHE HAD SOME ANIXTYE LAST NIGHT BUT THE MEDICATION HELPED. CLEAR/DIMINISHED LUNG SOUNDS. ACTIVE BOWEL SOUNDS. SOFT, OBESE, NON TENDER ABDOMEN. EQUAL AND STRONG HAND LOCK AND DAM OPERATOR. NO ARM OR LEG DRIFTS. NO EDEMA PRESENT AT THIS TIME. STRONG PULSES. TURNED VAPOTHERM TOWARDS THE DOOR AND EDUCATED HER THAT WE NEEDED TO VIEW IT, IT WILL HELP DECREASE HER ANXITEY IF SHE ISNT SO FOCUSED ON THOSE NUMBERS. SHE STATED "OK". HAS NOT TOUCHED THE MACHINE OF NOW. SAFETY MEASURES IN PLACE. CALL LIGHT IN REACH. WILL CONTINUE TO MONITOR PER HOSPITAL'S POLCIY.
--- NOTE | 2021-04-26 08:02 | NUR ---
WEANED [facility] PARAMETERS PT CLARE. PT GABRIEL AT THIS TIME. RN AWARE. SENIOR ADMINISTRATIVE SERVICES OFFICER TO MONITOR.
--- NOTE | 2021-04-26 10:00 | NUR ---
on bedside commode.
--- NOTE | 2021-04-26 10:16 | NUR ---
pt c preeti. vss. resting comfortably in bed, watching television. day camp unit leader to monitor.
--- NOTE | 2021-04-26 14:00 | NUR ---
PATIENT IS LAYING PRONE, O2 SATS 95%.
[2021-04-26 15:44] LABS: URINE BILIRUBIN - DIPSTICK NEGATIVE (NEGATIVE); URINE BLOOD DIPSTICK NEGATIVE (NEGATIVE); URINE CLARITY CLEAR; URINE COLOR YELLOW; URINE GLUCOSE - DIPSTICK NEGATIVE (NEGATIVE); URINE KETONE NEGATIVE (NEGATIVE); URINE LEUK ESTERASE NEGATIVE (Negative); URINE NITRITE - DIPSTICK NEGATIVE (Negative); URINE PROTEIN - DIPSTICK NEGATIVE (NEG-TRACE); URINE UROBILINOGEN - DIPSTICK 0.2 E.U./dL (0.2)
--- NOTE | 2021-04-26 16:00 | NUR ---
PATIENT SITING UP IN BED TALKING ON THE PHONE
--- NOTE | 2021-04-26 18:07 | NUR ---
PATIENT IS SITTING UP ON SIDE OF BED EATING DINNER.
[2021-04-27] VITALS (15 sets, daily range): BP systolic 112–137; BP diastolic 52–87
--- NOTE | 2021-04-27 04:23 | NUR ---
PATIENT ASLEEP. NO CHANGE IN CONDITION OVERNIGHT
[2021-04-27 06:05] LABS: HEMATOCRIT 36.5 % (37.0-47.0); HEMOGLOBIN 11.7 g/dl (12.0-16.0); IMMATURE GRANULOCYTES 1.5 % (0.0-5.0); MEAN CELL VOLUME 84.7 fL CALC (80.0-100.0); MEAN CORPUSCULAR HGB 27.1 pG CALC (26.0-32.0); MEAN CORPUSCULAR HGB CONC 32.1 g/dL CAL (32.0-36.0); NEUT# 5.94 thou/uL (2.00-7.15); RED BLOOD COUNT 4.31 mill/uL (4.20-5.60); RED CELL DISTRI WIDTH 13.7 % (11.5-15.5)
[2021-04-27 06:22] LABS: ALKALINE PHOSPHATASE 70 u/l (38-126); ANION GAP 11 (6-22 (CALC)); BILIRUBIN, TOTAL 0.3 mg/dL (0.0-1.4); BUN 17 mg/dL (7-17); BUN/CREATININE RATIO 24 (12-20 (CALC)); C-REACTIVE PROTEIN 3.3 mg/dL (0-0.9); CARBON DIOXIDE 25 mmol/l (22-30); CHLORIDE 103 mmol/l (95-108); CREATININE 0.7 mg/dL (0.5-1.0); GFR > 60 ML/MIN (>=60 (CALC)); GFR FOR AFR.AMER. > 60 ML/MIN (>=60 (CALC)); POTASSIUM 4.4 mmol/l (3.5-5.1); SGOT/AST 19 u/l (14-36); SODIUM 135 mmol/l (137-146); TOTAL PROTEIN 6.7 g/dL (6.3-8.2)
--- NOTE | 2021-04-27 08:00 | NUR ---
PATIENT IS A/O X3, ABLE TO MAKE NEEDS KNOWN TO STAFF. DENIES PAIN OR SOB AT THIS TIME. CLEAR TO DIMINSHED LUNG SOUNDS. NORMAL HEART SOUNDS. ACTIVE BOWEL SOUNDS. USES BEDSIDE COMMODE OFTEN. ACTIVE BOWEL SOUNDS. NO EDEMA PRESENT AT THIS TIME. STRONG PULSES. 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 NO ARM OR LEG DRIFT. IS COUGHING AND SPITTING UP WHITE SPUTUM. PATIENT STATED IT HAPPENS EVERY NOW AND THEN. VITAL SIGNS ARE STABLE. NEEDS ARE REQUESTED AND MET. SHOWED ME HOW SHE USES THE I.S AND GETS UP TO 500 EACH TIME. SHE STATED SHE "PLAYS WITH IT OFTEN JUST TO SEE HOW IM DOING". SAFETY MEASURES IN PLACE. CALL LIGHT IN REACH. WILL COTNINUE TO MONITOR PER HOSPITAL'S POLICY.
--- NOTE | 2021-04-27 10:00 | NUR ---
PATIENT ON BEDSIDE COMMODE
--- NOTE | 2021-04-27 12:00 | NUR ---
PATIENT IS SITTING UP IN BED EATING HER LUNCH
--- NOTE | 2021-04-27 14:00 | NUR ---
PATIENT IS SITTING UP IN BED TALKING ON THE PHONE
--- NOTE | 2021-04-27 16:00 | NUR ---
PATIENT IS SITTING UP IN HER CHAIR.
--- NOTE | 2021-04-27 18:00 | NUR ---
PATIENT SITTING UP IN CHAIT ON THE PHONE EATING DINNER.
--- NOTE | 2021-04-27 18:13 | NUR ---
PATIENT IS SITTING UP IN CHAIR EATING DINNER.
--- NOTE | 2021-04-27 19:00 | NUR ---
RECEIVED REPORT FROM NURSE ZOEY JEREZ PATIENT CARE.
--- NOTE | 2021-04-27 20:00 | NUR ---
PATIENT CURRENTLY SITTING IN BED, ALERT ORINETED X 3 ABLE TO MAKE NEEDS KNOWN, CURRENTLY ON AIR/CONTACT PRECAUTION COVID 19, ON VAPOTHERM 25LPM FI02 60%, BREATHING SHALLOW UNLABORED, OCCASIONAL COUGH NON PRODUCTIVE PER PATIENT, LUNG SOUNDS DIMINISHED BOTH LUNG COOPER, ENCOURAGED THE USED OF INCENTIVE SPIROMETER 500 INSPIARTORY VOLUME. PATIENT HAS SALINE LOCK ON RAC G 20 PATENT FLUSHES WELL, LOG CHIPPER SHOWS SB 59, ACTIVE BOWEL SOUNDS, LBM 04/27, PATIENT REQUESTING XANAX FOR ANXIETY AT BED TIME, WILL INFORM COUNCILOR MD, PATIENT CURRENTLY SITTING IN BED WATCHING TV AND TALKING ON THE PHONE, CALL LIGHT AT REACH.
--- NOTE | 2021-04-27 20:08 | NUR ---
INFORMED MANAGER COLLECTION ABOUT PATIENT REQUEST FOR ANXIETY MEDICATION, WITH ORDERS MADE, AND SENT TO [facility].
--- NOTE | 2021-04-27 22:00 | NUR ---
PATIENT REQUESTED ANXIETY AND PRN PAIN MEDICATION FOR CRAMPING, CURRENTLY RESTING IN BED TALKING ON THE PHONE, NOT IN DISTRESS CALL LIGHT AT REACH.
--- NOTE | 2021-04-27 22:58 | NUR ---
RT IN ROOM ASSESSING PATIENT DECREASE VAPOTHERM SETTING AT FI02 50%, SPO2 AT 96%.
[2021-04-28] VITALS (16 sets, daily range): BP systolic 107–148; BP diastolic 57–85
--- NOTE | 2021-04-28 00:18 | NUR ---
PATIENT RESTING IN BED, EYES CLOSED, BREATHING EVEN UNLABORED, CALL LIGHT AT REACH.
--- NOTE | 2021-04-28 02:00 | NUR ---
PATIENT RESTING IN BED WITH EYES CLOSED, BREATHING SHALOOW, UNLABORED, REMAINS ON VAPOTHERM SETTINGS 25LPM FIO2 50% CALL LIGHT AT REACH.
--- NOTE | 2021-04-28 04:00 | NUR ---
PATIENT APPEARS TO BE SLEPPING WITH EYES CLOSED, BREATHING UNLABORED CALL LIGHT AT REACH.
[2021-04-28 05:34] LABS: HEMATOCRIT 35.7 % (37.0-47.0); HEMOGLOBIN 11.5 g/dl (12.0-16.0); MEAN CELL VOLUME 85.2 fL CALC (80.0-100.0); MEAN CORPUSCULAR HGB 27.4 pG CALC (26.0-32.0); MEAN CORPUSCULAR HGB CONC 32.2 g/dL CAL (32.0-36.0); RED BLOOD COUNT 4.19 mill/uL (4.20-5.60); RED CELL DISTRI WIDTH 13.4 % (11.5-15.5)
--- NOTE | 2021-04-28 05:40 | NUR ---
PATIENT WASHED UP, LINENS CHANGE, AND ASSISTED BACK IN BED.
[2021-04-28 05:56] LABS: ANION GAP 11 (6-22 (CALC)); BUN 18 mg/dL (7-17); BUN/CREATININE RATIO 27 (12-20 (CALC)); CARBON DIOXIDE 23 mmol/l (22-30); CHLORIDE 104 mmol/l (95-108); CREATININE 0.7 mg/dL (0.5-1.0); GFR > 60 ML/MIN (>=60 (CALC)); GFR FOR AFR.AMER. > 60 ML/MIN (>=60 (CALC)); MAGNESIUM 2.1 mg/dL (1.6-2.3); POTASSIUM 4.3 mmol/l (3.5-5.1); SODIUM 134 mmol/l (137-146)
--- NOTE | 2021-04-28 06:26 | NUR ---
PATIENT RESTING WITH EYES CLOSED, BREATHING UNLBAORED CALL LIGHT AT REACH.
--- NOTE | 2021-04-28 06:29 | NUR ---
PATIENTS HR DROP TO 39 BPM, NOT SUSTAINED, AND WENT BACK UP TO 40'S.WILL CONTINUE TO MONITOR.
--- NOTE | 2021-04-28 07:00 | NUR ---
ASSUMED CARE OF PT FROM NIGHTSHIFT RN AFTER BEDSIDE REPORT, NO S/S OF DISTRESS NOTED, APPEARS TO BE SLEEPING IN BED, EYES CLOSED.
--- NOTE | 2021-04-28 08:00 | NUR ---
PLACED BREAKFAST TRAY IN ROOM ON BEDSIDE TABLE, PT STATED SHE DIDNT WANT IT YET, PT A AND O X3, PROVIDED WARM PACK FOR PERIOD CRAMPS, PT DENIED MEDICATION, DENIES ANY OTHER NEEDS AT THIS TIME
--- NOTE | 2021-04-28 10:30 | NUR ---
PT SITTING IN BED ON PHONE, REMOVED BREAKFAST TRAY, SHE SAID SHE WASNT HUNGRY, SHE DIDNT CONSUME ANY, DENIES ANY OTHER NEEDS AT THIS TIME
--- NOTE | 2021-04-28 14:45 | NUR ---
VAPOTHERM STANDBY. PLACED ON 13L HFNC
--- NOTE | 2021-04-28 14:45 | NUR ---
PT PLACED ON HF NC AT 15 L BY RT, SITTING IN RECLINER, DENIES NEEDS
--- NOTE | 2021-04-28 16:30 | NUR ---
PT BACK TO BED FROM RECLINER, NO S/S OF DISTRESS NOTED. BROUGHT IN FOOD THAT WAS DROPPED OFF.
--- NOTE | 2021-04-28 17:16 | NUR ---
O2 SAT ON 13LHF 99%. DECREASED TO 10L.
--- NOTE | 2021-04-28 17:30 | NUR ---
DINNER TRAY PROVIDED. WEANED DOWN TO 10L HI ADEBAYO NC. DENIES ANY ADDITIONAL NEEDS
--- NOTE | 2021-04-28 20:41 | NUR ---
LATE ENTRY FOR 1900. SBAR RECEIVED FROM GORDO BELLAMY. PATIENT SITTING UP IN BED WATCHING TV. NO DISTRESS NOTED. C/O ABDOMINAL CRAMPING R/T MENSTRUAL 4 ON SCALE 0-10; WARM COMPRESS PROVIDED. NO FURTHER CONCERNS EXPRESSED, CALL LIGHT WITHIN REACH.
[2021-04-29] VITALS (7 sets, daily range): BP systolic 106–145; BP diastolic 66–80
--- NOTE | 2021-04-29 00:47 | NUR ---
RESTING QUIETLY EYES CLOSED. NO DISTRESS NOTED. BED IN LOW POSITION, LOCKED. CALL LIGHT WITHIN REACH.
--- NOTE | 2021-04-29 04:45 | NUR ---
PATIENT AWAKENED TO ADJUST TELEMETRY LEADS. DENIES PAIN AT THIS TIME. NO DISTRESS NOTED. OFFERED ASSISTANCE TO BSC AND FLUIDS. NO CONCERNS EXPRESSED. CALL LIGHT WITHIN REACH.
[2021-04-29 05:48] LABS: HEMATOCRIT 36.4 % (37.0-47.0); HEMOGLOBIN 11.5 g/dl (12.0-16.0); IMMATURE GRANULOCYTES 1.2 % (0.0-5.0); MEAN CELL VOLUME 85.6 fL CALC (80.0-100.0); MEAN CORPUSCULAR HGB 27.1 pG CALC (26.0-32.0); MEAN CORPUSCULAR HGB CONC 31.6 g/dL CAL (32.0-36.0); NEUT# 7.98 thou/uL (2.00-7.15); RED BLOOD COUNT 4.25 mill/uL (4.20-5.60); RED CELL DISTRI WIDTH 13.7 % (11.5-15.5)
[2021-04-29 06:20] LABS: ALKALINE PHOSPHATASE 80 u/l (38-126); BILIRUBIN, TOTAL 0.3 mg/dL (0.0-1.4); BUN 19 mg/dL (7-17); BUN/CREATININE RATIO 27 (12-20 (CALC)); C-REACTIVE PROTEIN 1.2 mg/dL (0-0.9); CARBON DIOXIDE 24 mmol/l (22-30); CHLORIDE 107 mmol/l (95-108); CREATININE 0.7 mg/dL (0.5-1.0); GFR > 60 ML/MIN (>=60 (CALC)); GFR FOR AFR.AMER. > 60 ML/MIN (>=60 (CALC)); SGOT/AST 17 u/l (14-36); SODIUM 134 mmol/l (137-146); TOTAL PROTEIN 6.6 g/dL (6.3-8.2)
[2021-04-29 06:32] LABS: ANION GAP 6 (6-22 (CALC)); POTASSIUM 3.4 mmol/l (3.5-5.1)
--- NOTE | 2021-04-29 08:00 | NUR ---
PATIENT RESTING IN BED AT THIS TIME. PATIENT DENEIS ANY CURRENT NEEDS. PATIENT ON 12L HI-FLOW AT THIS TIME AND SPO2 IS SHOWING 96%. PATIENT STATES HE PAIN IS 0 AT THIS TIME. LUNG COOPER REMAIN DIMINISHED AND BREATH SOUNDS ARE CLEAR. NAILING MACHINE OPERATOR AUTOMATIC DONE AT THIS TIME SEE INTERVENITONS. SIDERAILS ARE UP CALL LIGHT WITHIN REACH. WILL CONTINUE TO MONITOR. VENDING MACHINE MECHANIC SHOWING HR SB/44 AT THIS TIME.
--- NOTE | 2021-04-29 09:30 | NUR ---
PATIENT 02 TITRATED DOWN TO 10L HI-FLOW AT THIS TIME PATIENT ADVISED IF SHE BECOMES SHORT OF BREATH TO CALL NURSE. PATIENT VERBALIZES AND UNDERSTANDS DIRECTIVE. WILL CONTINUE TO MONITOR.
--- NOTE | 2021-04-29 09:57 | NUR ---
PATIENT SPO2 AT THIS TIME ON 10L IS 99% WILL CONTINUE TO MONITOR.
--- NOTE | 2021-04-29 10:00 | NUR ---
PATIENT ON 6L OF 02 AT THIS TIME AND SPO2 IS CURRENTLY 93% PATIENT SITTING UP IN CHAIR EATING FRIED CHICKEN AND WAFFLES AND STATING SHE REALLY "FEELS GREAT". PATIENT ADVISED SHE WILL BE MOVED OUT TO MED/SURG AFTER LUNCH. WILL CONTINUE TO MONITOR.
--- NOTE | 2021-04-29 10:16 | NUR ---
PATIENT O2 TITRATED DOWN TO 8L HIGH FLOW AT THIS TIME. SPO2 IS 99% WILL RECHECK AND CONTINUE TO MONITOR.
--- NOTE | 2021-04-29 10:27 | NUR ---
PATIENT 02 TITRATED TO 5L HI-FLOW AT THIS TIME. SPO2 IS CURRENTLY 95% WILL CONTINUE TO MONITOR.
--- NOTE | 2021-04-29 10:48 | NUR ---
pt c nad. vss. rn has actively weaned pt o2. nad. vss. antonio well at this time. worm farm laborer to monitor.
--- NOTE | 2021-04-29 12:05 | NUR ---
PATIENT SITTING UP IN CHAIR AT THIS TIME. PATIENT DENIES ANY NEEDS CURRENTLY PATIENT ON IS ON 6L HI-FLOW AND SPO2 CURRENTLY AT THIS TIME IS 94%. PATIENT TO BE TRANSFERED TO MED/SURG THIS AFTERNOON ON TELE.
--- NOTE | 2021-04-29 12:20 | NUR ---
no chnages at this time. pt c nad. vss. vehicle modification technician to monitor.
--- NOTE | 2021-04-29 13:05 | NUR ---
REPORT CALLED TO NELLIE ON MED/SURG AT THIS TIME FOR PATIENT TO BE TRANSFERED ORDERS SENT TO ER REGIATRATION.
--- NOTE | 2021-04-29 13:06 | NUR ---
RECEIVED REPORT FROM ICU NURSE/ROYA. ALL QUESTIONS ANSWERED
--- NOTE | 2021-04-29 13:29 | NUR ---
PT ARRIVED IN ROOM 285 ACCOMPANIED BY ICU NURSE. PT ALERT AND ORIENTED. PT DENIES PAIN OR SOB AT THIS TIME. O2 CONTINUED VIA NASAL CANNULA 6L HIGH FLOW. IV FLUSHED AND PATENT. ASSESSMENT COMPLETE. PATIENT PLACED ON TELE. SAFETY MEASURES ARE IN PLACE. CALL LIGHT WITHIN REACH. WILL MONITOR PATIENT CLOSELY
--- NOTE | 2021-04-29 13:31 | NUR ---
patient moved to med/surg room 285
--- NOTE | 2021-04-29 16:16 | NUR ---
PT RESTING COMFORTABLY IN BED. PT DENIES ANY PAIN OR SOB. PATIENT HAS NO IMMEDIATE NEEDS AT THIS TIME. SAFETY MEASURES MAINTAINED. CALL LIGHT WITHIN PATIENT REACH. WILL CONTINUE TO MONITOR
--- NOTE | 2021-04-29 19:30 | NUR ---
ASSESSMENT COMPLETE. PATIENT ALERT AND ORIENTED. ABLE TO MAKE NEEDS KNOWN. DENIES ANY PAIN. NO SIGNS OR SYMPTOMS OF DISTRESS NOTED. CALL LIGHT AND BELONGINGS WITHIN REACH.
[2021-04-30] VITALS: BP 106/65
--- NOTE | 2021-04-30 02:30 | NUR ---
RESTING IN BED. NO COMPLAINTS VOICED AT THIS TIME. CALL LIGHT AND BELONGINGS REMAIN IN REACH.
[2021-04-30 04:00] VITALS: BP 108/51
--- NOTE | 2021-04-30 05:00 | NUR ---
PATIENT SITTING UP IN BED AWAKE, ON HER PHONE. DENIES COMPLAINTS OF PAIN OR DISTRESS NOTED. INFORMED PATIENT TO LET ME KNOW IF SHE NEEDED ANYTHING. CALL LIGHT AND BELONGINGS IN REACH.
[2021-04-30 07:10] VITALS: BP 110/82
--- NOTE | 2021-04-30 07:10 | NUR ---
PATIENT LAYING IN BED AWAKE AT THIS TIME. PATIENT DENIES ANY PAIN AT THIS TIME. WOOD HANDLER DONE AT THIS TIME SEE INTERVENTIONS. LUNG COOPER ARE CLEAR IN UPPER AND MIDDLE COOPER AND DIMINISHED IN LOWER COOPER. BREATH SOUND ARE CLEAR. O2 ON 6L HI-FLOW AT THIS TIME AND SPO2 IS CURRENLTY 94%. PATIENT EXHIBITS NON PRODUCTIVE COUGH INTERMITTENLY. TELE MONITOR ON AND BEING MONITORED BY ED. WILL CONTINUE TO MONITOR.
--- NOTE | 2021-04-30 09:35 | NUR ---
DR. FRANKEL AND NEREYDA PATTENPN IN TO SEE PATIENT AT THIS TIME.
[2021-04-30 10:30] VITALS: BP 110/72
--- NOTE | 2021-04-30 11:33 | NUR ---
PATIENT SITTING UP EATING LUNCH AT THIS TIME. PATIENT DENEIS ANY NEEDS AND OR PAIN AT THIS TIME. PATIENT REMAINS ON 6L OF HIGH-FLOW O2 AND SPO2 IS 97% AT THIS TIME. SIDERAILS ARE UP CALL LIGHT IS WITHIN REACH.
[2021-04-30 15:39] VITALS: BP 144/66
--- NOTE | 2021-04-30 16:05 | NUR ---
PATIENT SITTING UP IN CHAIR AT THIS TIME WATCHING TV. PATIENT ASKED IF SHE WOULD BE GETTING DIFLUCAN AGAIN FOR VAGIANL ITCHING. I STATED TO HER THAT I SPOKE TO NEREYDA CASAREZ AND HE STATED NOT AT THIS TIME. PATIENT STATED SHE SHE WASN'T AWARE THAT IT WAS ONLY GIVEN ONCE. PATIENT ADVISE AND EDUCATED ON GOOD PERICARE AT THIS TIME. PATIENT STATE SHE IS GOING TO "WASH UP". PATIENT REMAINS ON 6L HIGH-FLOW AND SPO2 IS 94% AT THIS TIME. TELE MONITIOR IN PLACE AND BEING MONITORED BY ED.
--- NOTE | 2021-04-30 18:45 | NUR ---
Report received from Maryann Holcomb Rn
[2021-04-30 20:04] VITALS: BP 97/57
--- NOTE | 2021-04-30 20:50 | NUR ---
Alert and oriented x3. Patient sitting in high fowlers. Normal heart sounds, last tele reading sb 54. Clear/Dimminished lung sounds, on 6L HF reading 94%. Active bowel sounds throughout all quadrants. Last reported bowel movement 04/29. #22 in LFA Sl, flushed and patent. Plan of care reviewed with patient, call light and bedside table within reach.
--- NOTE | 2021-04-30 23:30 | NUR ---
Pt resting comfortably, no apparent distress noted. Call light and bedside table within reach.
[2021-05-01] VITALS: BP 109/60
[2021-05-01 04:00] VITALS: BP 105/63
--- NOTE | 2021-05-01 04:39 | NUR ---
Patient resting comfortably. No distress noted. Denies any current needs at this time. Call light and bedside table within reach.
[2021-05-01 05:45] LABS: HEMATOCRIT 38.1 % (37.0-47.0); HEMOGLOBIN 12.1 g/dl (12.0-16.0); IMMATURE GRANULOCYTES 1.2 % (0.0-5.0); MEAN CELL VOLUME 86.6 fL CALC (80.0-100.0); MEAN CORPUSCULAR HGB 27.5 pG CALC (26.0-32.0); MEAN CORPUSCULAR HGB CONC 31.8 g/dL CAL (32.0-36.0); NEUT# 7.39 thou/uL (2.00-7.15); RED BLOOD COUNT 4.4 mill/uL (4.20-5.60); RED CELL DISTRI WIDTH 14.1 % (11.5-15.5)
[2021-05-01 06:01] LABS: ALBUMIN 3.4 g/dL (3.2-5.0); ALKALINE PHOSPHATASE 99 u/l (38-126); ANION GAP 11 (6-22 (CALC)); BILIRUBIN, TOTAL 0.4 mg/dL (0.0-1.4); BUN 18 mg/dL (7-17); BUN/CREATININE RATIO 23 (12-20 (CALC)); CARBON DIOXIDE 25 mmol/l (22-30); CHLORIDE 105 mmol/l (95-108); CREATININE 0.8 mg/dL (0.5-1.0); GFR > 60 ML/MIN (>=60 (CALC)); GFR FOR AFR.AMER. > 60 ML/MIN (>=60 (CALC)); SGOT/AST 19 u/l (14-36); SODIUM 136 mmol/l (137-146); TOTAL PROTEIN 7.2 g/dL (6.3-8.2)
[2021-05-01 06:08] LABS: POTASSIUM 4.8 mmol/l (3.5-5.1)
--- NOTE | 2021-05-01 08:00 | NUR ---
PT AWAKE, ALERT, ORIENTED AND SITTING UP IN BED. PT RESTING COMFORTABLY WITH NO C/O OF PAIN OR DISCOMFORT. VS AND ASSESSMENT COMPLETE. IV INTACT, FLUSHED AND PATENT. HR NORMAL. LUNG SOUNDS DIMINISHED. BREATHS EVEN AND NONLABORED. PT CONTINUE ON 02 THERAPY. ABD SOFT,ROUND AND NONTENDER. PERIPHERAL PULSES STRONG. SAFETY MEASURES ARE IN PLACE. CALL LIGHT WITHIN PATIENTS REACH. WILL MONITOR PATIENT CLOSELY
[2021-05-01 11:36] VITALS: BP 112/56
[2021-05-01] MEDS ORDERED: ASPIRIN REGULA325 M1 PO (13:25)
[2021-05-01] MEDS ORDERED: DECADRON4 MG PO (13:28)
[2021-05-01] MEDS ORDERED: PROTONIX40 M2 PO (13:28)
[2021-05-01] MEDS ORDERED: VENTOLIN HFA108 MCG IN (13:30)
[2021-05-01 16:53] VITALS: BP 108/61
--- NOTE | 2021-05-01 18:45 | NUR ---
Report received from Herbie Flynn Rn
[2021-05-01 19:00] VITALS: BP 103/69
--- NOTE | 2021-05-01 19:15 | NUR ---
Alert and oriented x3. Patient sitting in high fowlers. Normal heart sounds, last tele reading [id number]. Clear/Dimminished lung sounds, on 6L HF reading 96%. Active bowel sounds throughout all quadrants. Last reported bowel movement 05/01. #22 in LFA Sl, flushed and patent. Plan of care reviewed with patient, call light and bedside table within reach.
--- NOTE | 2021-05-01 23:30 | NUR ---
Patient resting comfortable, awoken by writter. Denies any pain. call light and bedside table within reach.
[2021-05-02] VITALS: BP 106/63
[2021-05-02 04:00] VITALS: BP 101/58
--- NOTE | 2021-05-02 08:00 | NUR ---
PT AWAKE AND SITTING IN BED. PT ALERT AND ORIENTED, PT DENIES ANY PAIN OR DISCOMFORT AT THIS TIME. VS AND ASSESSMENT COMPLETE. LUNGS CLEAR AND DIMINISHED. ABDOMEN SOFT ROUND NONTENDER. BOWEL SOUNDS ACTIVE X 4 PERIPHERAL PULSES PALPABLE. PT CONTINUED ON O2 THERAPY. IV INTACT AND PATENT. SAFETY PRECAUTIONS IN PLACE. CALL LIGHT WITHIN PATIENTS REACH. WILL MONITOR PATIENT CLOSELY
[2021-05-02] MEDS ORDERED: ZOLOFT25 MG PO (10:32)
[2021-05-02] MEDS ORDERED: XANAX0.25 MG PO (10:33)
== END 2021-05-02 15:05 | disposition home or self-care (01) | DRG 177 ==
LOC: ED 13:58 → ED-I 17:22 → ED 17:51 → MS2 17:52 → ICU 17:52 → ED-I 04-20 09:02 → ICU 04-20 19:45 → MS2 04-29 13:25
PROVIDERS: Family Medicine; Hospitalist; Nurse Practitioner; Nurse Practitioner Family; ADMIT Internal Medicine; ATTEND Internal Medicine
PROC: XW033E5 Introduction of Remdesivir Anti-infective into Peripheral Vein, Percutaneous Approach, New Technology Group 5 (ICD-10-PCS; principal; 2021-04-18)
PROC: 0T9B70Z Drainage of Bladder with Drainage Device, Via Natural or Artificial Opening (ICD-10-PCS; 2021-04-22)
DX: U07.1 COVID-19 (principal); J12.82 Pneumonia due to coronavirus disease 2019; J96.01 Acute respiratory failure with hypoxia; F41.9 Anxiety disorder, unspecified; E66.9 Obesity, unspecified; Z68.36 Body mass index [BMI] 36.0-36.9, adult
CPT/HCPCS: J1650; Q9967

== ENCOUNTER 2023-01-15 15:06 | Emergency (ER) | payer BC, OTHER ==
[~2023-01-15] VITALS: Ht 172.7 cm; Wt 117.9 kg
[~2023-01-15 15:06] MED LIST changes: +ASPIRIN REGULA325 M1 PO; +DECADRON4 MG PO; +PROTONIX40 M2 PO; +VENTOLIN HFA108 MCG IN; +XANAX0.25 MG PO; +ZOLOFT25 MG PO
[2023-01-15] MEDS ORDERED: MAXITROL 0.1 %1 SUS OU (15:38)
[2023-01-15 15:42] VITALS: BP 155/103
== END 2023-01-15 15:52 | disposition home or self-care (01) | DRG 125 ==
LOC: ED 15:06
DX: H10.9 Unspecified conjunctivitis (principal)